=== PATIENT | male | born 1960 | race Caucasian/White ===

== ENCOUNTER 2017-03-05 11:41 | Inpatient (IN) | payer SELFPAY ==
[~2017-03-05] VITALS: Ht 170.2 cm; Wt 117.9 kg
[2017-03-05] VITALS (48 sets, daily range): BP systolic 46–154; BP diastolic 24–92
[2017-03-05] MEDS ORDERED: ETOMIDATE 2 MG/ML VIAL IV ONE (11:42)
[2017-03-05] MEDS ORDERED: SUCCINYLCHOLINE CHLORIDE 20 MG/ML VIAL IV ONE (11:42)
--- NOTE | 2017-03-05 11:42 | NUR ---
PT BRIANA RA 38 IN FULL CARDIAC ARREST. PER EMS, PT'S FRIEND CALLED 911 AFTER WITNESSING PT "SHAKING"AND WENT DOWN ONTO THE GROUND. UPON ER ARRIVAL, PT IN CARDIAC ARREST. PEA ON MONITOR. CPR IN PROGRESS. PT IMMEDIATELY INTUBATED WITH 7.5 ETT 25 @ THE LIP WITH + COLOR CHANGE AND BS BILATERALLY VENT SETTINGS FF: AC, RATE 16, TV 500, PEEP 5, & FI02 100%. SEE CODE SHEET
--- NOTE | 2017-03-05 11:54 | NUR ---
PAGED HAI GONZALEZ
--- NOTE | 2017-03-05 11:55 | NUR ---
+ ROSC. CPR TERMINATED.
[2017-03-05] MEDS ORDERED: EPINEPHRINE (1:10,000) SYRINGE 1 MG/10 ML DISP.SYRIN IV ONE ×2 (12:00)
[2017-03-05] MEDS ORDERED: IV NS 0.9% 1,000 ML BAG IV ONE (12:00)
[2017-03-05] MEDS ORDERED: CALCIUM CHLORIDE 1,000 MG/10 ML DISP.SYRIN IV ONE (12:00)
[2017-03-05] MEDS ORDERED: SODIUM BICARBONATE SYR 50 MEQ/50 ML DISP.SYRIN IV ONE (12:00)
--- NOTE | 2017-03-05 12:12 | NUR ---
URINE SAMPLE COLLECTED SENT TO LAB
--- NOTE | 2017-03-05 12:17 | NUR ---
CORE TEMP 108.1. COOLING MEASURES INITIATED. COOLING MEASURE BLANKET, ICE PACK, COOL LAVAGE.
[2017-03-05 12:28] LABS: BASOPHILS # (AUTO) 0.2 /CMM (0.0-0.2); BASOPHILS % (AUTO) 1.9 % (0.0-2.0); EOSINOPHILS % (AUTO) 0.5 % (0.0-6.0); HEMATOCRIT 45 % (39-51); INR 1.31 (0.87-1.13); LYMPHOCYTES # (AUTO) 5.5 /CMM (0.8-4.8); LYMPHOCYTES % (AUTO) 63.3 % (20.0-44.0); MEAN CORPUSCULAR HEMOGLOBIN 36 PG (26.0-33.0); MEAN CORPUSCULAR HGB CONC 33 g/dl (31.0-36.0); MEAN CORPUSCULAR VOLUME 110 fL (80-96); MONOCYTES # (AUTO) 0.5 /CMM (0.1-1.30); MONOCYTES % (AUTO) 6.1 % (2.0-12.0); NEUTROPHILS # (AUTO) 2.4 /CMM (1.8-8.9); NEUTROPHILS % (AUTO) 28.2 % (43.0-81.0); PLATELET COUNT (AUTO) 213 /CMM (150-450); PROTHROMBIN TIME 13.8 SECS (9.5-12.7); RDW COEFFICIENT OF VARIATION 20.3 (11.5-15.0); RED BLOOD CELL COUNT(AUTO) 4.12 MIL/uL (4.5-6.0); WHITE BLOOD COUNT (AUTO) 8.6 K/uL (4.3-11.0)
[2017-03-05] MEDS ORDERED: IV NS 0.9% 1,000 ML IV ONE ×2 (12:30)
[2017-03-05] MEDS ORDERED: ACETAMINOPHEN 325 MG TABLET PO PRN (12:30)
[2017-03-05] MEDS ORDERED: ONDANSETRON HCL/PF 4 MG/2 ML VIAL IVP PRN (12:30)
[2017-03-05 12:31] LABS: APPEARANCE,URINE Cloudy (CLEAR); BILIRUBIN,URINE LARGE (NEGATIVE); BLOOD, URINE Moderate Ery/uL (NEGATIVE); COLOR,URINE Dark (YELLOW); KETONES,URINE 15 (NEGATIVE); LEUKOCYTE ESTERASE ,URINE Negative (NEGATIVE); NITRITE, URINE Negative (NEGATIVE); PROTEIN,URINE >=300 mg/dl (NEGATIVE); UGLUCOSE Negative (NEGATIVE); UROBILINOGEN,URINE >=8.0 EU/dL (0.2)
[2017-03-05 12:32] LABS: TROPONIN I 0.031 ng/mL (0.00-0.056)
[2017-03-05 12:37] LABS: ALANINE AMINOTRANSFERASE 188 U/L (12-78); ALKALINE PHOSPHATASE 123 U/L (46-116); ASPARTATE AMINOTRANSFERASE 743 U/L (15-37); BILIRUBIN,DIRECT 1.3 mg/dL (0.0-0.2); BILIRUBIN,TOTAL 2.1 mg/dL (0.2-1.0); CALCIUM, SERUM 8.7 mg/dL (8.5-10.1); CARBON DIOXIDE 25 mmol/L (21-32); CHLORIDE 85 mmol/L (98-107); CREATININE 3.5 mg/dL (0.6-1.3); GLUCOSE 181 mg/dL (74-106); SODIUM SERUM 131 mmol/L (136-145); TOTAL PROTEIN, SERUM 6.9 g/dL (6.4-8.2); UREA NITROGEN, BLOOD 33 mg/dL (7-18)
[2017-03-05 12:39] LABS: POTASSIUM 2.6 mmol/L (3.5-5.1)
[2017-03-05 12:40] LABS: BACTERIA,URINE Few /HPF (None Seen); RBC,URINE 21-50 /HPF (0-2); SQUAMOUS EPITHELIAL CELL,UR Few /HPF (None Seen); WBC,URINE 0-2 /HPF (0-3)
[2017-03-05] MEDS ORDERED: FEE PK DOSING 1 MIN EA MC ONE (13:07)
[2017-03-05 13:16] LABS: CREATINE KINASE MB 0.5 ng/mL (0-3.6)
[2017-03-05] MEDS ORDERED: PIPERACILLIN /TAZOBACTAM 2.25 G in IV D5W 50 ML IV SCH (13:30)
[2017-03-05] MEDS: POTASSIUM CL. PREMIX PERIPHER. 50 ML IV SCH ×4 (13:49→16:25)
[2017-03-05] MEDS: PANTOPRAZOLE 40 MG VIAL IV SCH (13:49)
[2017-03-05] MEDS: IV NS 0.9% 1,000 ML IV PRN ×2 (13:50→15:36)
[2017-03-05] MEDS: ENOXAPARIN SODIUM 30 MG/0.3 ML DISP.SYRIN SQ SCH (13:50)
[2017-03-05] MEDS ORDERED: VANCOMYCIN 1.25 GM in IV D5W 500 ML IV ONE (14:00)
[2017-03-05 14:21] LABS: ABG BASE EXCESS -6.4 mmol/L; ABG OXYGEN SATURATION 98.3 % (92.0-98.5); ABG PCO2 62.6 mmHg (35.0-45.0); ABG PH 7.182 (7.350-7.450); ABG PO2 168.2 mmHg (75.0-100.0); AaDO2 482.2 mmHg; COHb 1.7 % (0.5-1.5); MetHb 1.1 % (0.0-1.5); O2Hb 95.5 % (94.0-97.0); PEEP,BG 5 cm H2O; SITE, ABG Right Radial; VENT MODE, BG AC 16 500 100% +5; VT, ABG 500 mL
[2017-03-05] MEDS ORDERED: NOREPINEPHRINE 8 MG in IV D5W 500 ML IV PRN (14:30)
--- NOTE | 2017-03-05 15:00 | NUR ---
CULINARY INTERNSHIP RECEIVED PATIENT UNRESPONSIVE, NO PUPILLARY REACTION WITH MULTIPLE IV ACCESS ON MECHANICAL VENTILATORY SUPPORT VERY DISHEVELED NO GAG REFLEX NOTED ALL EXTREMITIES WARM TO TOUCH, WEAK PULSES NOTED ELEVATED TEMPERATURE NOTED, PLACED ON A COOLING BLANKET AND ICE PACK ALL OVER HIS BODY MOTTLING OF THE SKIN NOTED TACHYCARDIA NOTED MD ORDERED TO GIVE 3RD BOLUS OF NS 1 LITER (+) BM NOTED
[2017-03-05] MEDS: NOREPINEPHRINE 16 MG in IV D5W 500 ML IV PRN ×2 (15:07→20:47)
--- NOTE | 2017-03-05 15:15 | NUR ---
FOOD OPERATIONS MANAGER DR. CALDERON SAW THE PATIENT WITH NEW ORDERS MADE AND CARRIED OUT MONITORED CLOSELY
--- NOTE | 2017-03-05 15:19 | NUR ---
RT NOTE PT ETT PULLED OUT TO 23 CM AT LIP PER MD REQUEST. CUFF INFLATED. NO DISTRESS NOTED. WILL CONTINUE TO MONITOR. Addendum: 03/05/17 at 1522 by TIKI BERMUDEZ RT Amended: Links added.
--- NOTE | 2017-03-05 15:22 | NUR ---
#3 D/W DR CALDERON REGARDING LOW BP 56/38 WITH ONLY ONE VENOUS CATHETER IN LT WRIST WHICH WE ARE USING FOR LEVOPHED. PICC PLACEMENT TEAM WAS CALLED EARLIER BY NURSING SUP.
[2017-03-05 15:57] LABS: ABG BASE EXCESS -6.7 mmol/L; ABG PH 7.264 (7.350-7.450); ABG PO2 92.2 mmHg (75.0-100.0); COHb 1.6 % (0.5-1.5); MetHb 0.9 % (0.0-1.5); O2Hb 93.6 % (94.0-97.0); PEEP,BG 0 cm H2O; SITE, ABG Right Radial; VENT MODE, BG AC 20 650 60% +0; VT, ABG 650 mL
--- NOTE | 2017-03-05 16:02 | NUR ---
ABG WITH PH 7.26 PCO2 46 PO2 [address] ANTONIO-NO CHANGE FOR NOW
--- NOTE | 2017-03-05 18:19 | NUR ---
D/W DR CALDERON THAT PT IS ANURIC, PT IS OOZING BLOOD FROM MOUTH, ALL VENIPUNCTURE SITES AND FROM BLOODY BM, AND THAT BP IS LOW IN SPITE OF HIGH DOSE LEVOPHED-SEE ORDERS FOR NEOSYN
--- NOTE | 2017-03-05 19:02 | NUR ---
SODA JERKER BLOODY SECRETION COMING OUT FROM THE MOUTH NOTED COLD TOUCH, BLANKET IS PLACED OVER HIM NS IV CHANGED TO 200 ML/HR LEVOPHED ON MAX AWAITING NEOSYNEPHERINE, ALREADY CALLED PHARMACY FOR THE MEDICATION STILL BLOOD PRESSURE IS FLUCTUATING POTASSIUM IS LOW, POTASSIUM 4 (40 MEQ) BAGS GIVEN THRU IV EARLIER ENDORSED TO NOD
--- NOTE | 2017-03-05 19:58 | NUR ---
AUTO MACHINIST DF @PT STARTED ON NEOSYNEPHRINE@100MCG BP OF 69/38.LEVOPHED@40MCG/MIN IV.0.9 NS @200ML/HR. @1930 INCREASED TO 150MCG/MIN @1999 INCREASED TO 200MCG/MIN PT FOUND DOWN PRIOR TO ADMISSION WITH WITNESSED FULL ARREST BY EMS STAFF.PT NOW IN ICU UNRESPONSIVE PT WITH HYPOXIC ISCHEMIC INJURY ON CT. PT NOT FOLLOWING COMMANDS,UNRESPONSIVE,NO GAG REFLEX PUPILS PUPILS SLUGGISH TO LIGHT@2MM.FLACCID BUE/BLE.PT INTUBATED TOLERATING VENT SETTINGS FIO2 OF 60%. NSR RATE OF 100-110BPM.PRESSOR SUPPORT NOTED.PT WITH TEMP OF 102 COOLING MEASURES PROVIDED.
[2017-03-05] MEDS: PIPERACILLIN /TAZOBACTAM 2.25 G in IV D5W 50 ML IV SCH (20:33)
--- NOTE | 2017-03-05 20:48 | NUR ---
RADIATION / CHEMISTRY TECHNICIAN DF NEOSYNEPHRINE INCREASED TO 250MCG/MIN BP OF 81/55
--- NOTE | 2017-03-05 21:29 | NUR ---
PT RECEIVED ORALLY INTUBATED ON VENT 7.5 ETT SECURED AT 22CM AT THE LIP. PT TOLERATING VENT SETTINGS. SX'D FOR LARGE AMT OF THIN TINGED SECRETIONS. VENT ALRMS SET AND AUDIBLE. AMBU BAG AT BEDSIDE. ETT CUFF BIOMASS FACILITATOR. VENT PLUGGED INTO RED OUTLET. WILL CONTINUE TO MONITOR. Addendum: 03/05/17 at 2131 by JASKARAN RICHARDS RT Amended: Links added.
--- NOTE | 2017-03-05 22:55 | NUR ---
CONSULTANT INTERN DF PT WITH HYPOTENSION SBP OF 65-81.PT ON MAX DOSE OF NEOSYNEPHRINE@300MCG LEVOPHED@40MCG.ORDERS RECEIVED FOR VASOPRESSIN AND [address] MARIN UPDATED
[2017-03-05] MEDS ORDERED: VASOPRESSIN INJ 20 UNIT/ML VIAL ONE (23:00)
[2017-03-05] MEDS ORDERED: FUROSEMIDE 100 MG/10 ML VIAL ONE (23:22)
[2017-03-05] MEDS ORDERED: PHENYLEPHRINE 10 MG/ML VIAL ONE (23:47)
--- NOTE | 2017-03-05 23:52 | NUR ---
EXTENSION CLERK DF PT STARTED ON VASOPRESSIN @ 0.02UNITS/HR BP OF 80/51. PER DR MARIN PT PREPARED FOR EDENILSON INSERTION.
[2017-03-06] VITALS (77 sets, daily range): BP systolic 40–123; BP diastolic 24–96
[2017-03-06] MEDS ORDERED: IV NS 0.9% 1,000 ML BAG IV ONE
[2017-03-06] MEDS ORDERED: NOREPINEPHRINE 4 MG/4 ML AMPUL IV ONE (00:14)
[2017-03-06] MEDS ORDERED: VASOPRESSIN INJ 50 UNIT in IV D5W 497.5 ML IV PRN (00:30)
[2017-03-06] MEDS: PHENYLEPHRINE 80 MG in IV D5W 250 ML IV PRN ×5 (00:31→17:53)
[2017-03-06] MEDS ORDERED: EPINEPHRINE (1:10,000) SYRINGE 1 MG/10 ML DISP.SYRIN IVP ONE ×4 (01:00→20:27)
[2017-03-06] MEDS ORDERED: SODIUM BICARBONATE SYR 50 MEQ/50 ML DISP.SYRIN IV ONE ×5 (01:00→20:27)
[2017-03-06] MEDS ORDERED: EPINEPHRINE (1:1000) 1 MG/ML AMPUL ONE ×2 (01:15→03:34)
[2017-03-06] MEDS: EPINEPHRINE (1:1000) 2 MG in IV D5W 250 ML IV PRN ×6 (01:31→17:53)
--- NOTE | 2017-03-06 01:36 | NUR ---
GRAPE PICKER DF @0105 PT WITH CODE BLUE PT WITH PEA/AYSTOLE ON MONITOR. PT PREVIOUSLY NOTED CRITICAL CONDITION FULL ARREST PRIOR TO ADMIT.PT ON MULTIPLE PRESSOR SUPPORT VIC/LEVO/VASO. CODE BLUE WITNESSED BY RT CARLOS CPR/ACLS CODE LEADER DR MARIN AT BEDSIDE. PT ADMIN 1 AMP HCO3 AND 2 AMPS EPINEPHRINE ROSC AT 0110. ABG/EPI GTT/LABS ORDERED PT DIFFICULT STICK AWAITING LAB VALUES. EPI GTT STARTED AT 10MCG/MIN.LABS WERE DRAWN JUST PRIOR TO CODE BLUE CONTAMINATION SUSPECTED.LAB ATTEMPTING PERIPHERAL DRAW.
[2017-03-06 01:53] LABS: ABG BASE EXCESS -22.8 mmol/L; ABG OXYGEN SATURATION 98.8 % (92.0-98.5); ABG PCO2 40.5 mmHg (35.0-45.0); ABG PH 6.955 (7.350-7.450); ABG PO2 233.7 mmHg (75.0-100.0); AaDO2 438.8 mmHg; COHb 0.5 % (0.5-1.5); MetHb 0.8 % (0.0-1.5); O2Hb 97.5 % (94.0-97.0); SITE, ABG Right Brachial; VT, ABG 650 mL
--- NOTE | 2017-03-06 01:54 | NUR ---
ABG DONE RN NOTIFIED WITH THE RESULT
--- NOTE | 2017-03-06 02:19 | NUR ---
HONEYCOMB DECAPPER DF PT ABG RESULTED PH 6.95 CO2 40 O2 [address] MARIN AT BEDSIDE AWARE OF RESULTS. SODIUM ACETATE 3AMPS IN D5W@125ML/HR ORDERED.AWAITING DELIVERY FROM [facility]. Addendum: 03/06/17 at 0232 by YVONNE DIAS RN HONEYCOMB DECAPPER DF SODIUM ACETATE UNAVAILABLE PER PHARMACY AND WAITER/WAITRESS CABIN CLASS.DR MARIN AWARE MEDICATION UNAVAILABLE.
--- NOTE | 2017-03-06 02:21 | NUR ---
SALES AND SERVICE TECHNICIAN DF LAB STAFF UNABLE TO OBTAIN PERIPHERAL DRAW MULTIPLE ATTEMPTS ATTEMPTED. DRAW FROM PICC LINE PROVIDED.
[2017-03-06] MEDS ORDERED: IV D5W 1,000 ML IV PRN (02:30)
[2017-03-06 02:41] LABS: BASOPHILS # (AUTO) 0.1 /CMM (0.0-0.2); BASOPHILS % (AUTO) 0.4 % (0.0-2.0); EOSINOPHILS # (AUTO) 0.1 /CMM (0.0-0.7); EOSINOPHILS % (AUTO) 0.3 % (0.0-6.0); HEMATOCRIT 42 % (39-51); HEMOGLOBIN 13.9 g/dL (13.5-17.5); LYMPHOCYTES # (AUTO) 7.9 /CMM (0.8-4.8); MEAN CORPUSCULAR HEMOGLOBIN 37 PG (26.0-33.0); MEAN CORPUSCULAR HGB CONC 33 g/dl (31.0-36.0); MEAN CORPUSCULAR VOLUME 112 fL (80-96); MONOCYTES % (AUTO) 10.4 % (2.0-12.0); NEUTROPHILS # (AUTO) 17.3 /CMM (1.8-8.9); NEUTROPHILS % (AUTO) 60.9 % (43.0-81.0); PLATELET COUNT (AUTO) 84 /CMM (150-450); RDW COEFFICIENT OF VARIATION 21.4 (11.5-15.0); RED BLOOD CELL COUNT(AUTO) 3.78 MIL/uL (4.5-6.0); WHITE BLOOD COUNT (AUTO) 28.4 K/uL (4.3-11.0)
--- NOTE | 2017-03-06 03:10 | NUR ---
CLINICAL DATA MANAGEMENT MANAGER DF STILL WAITING FOR LABS TO BE RESULTED DRAWN ABOUT 30-45MIN AGO.CONTACTED LAB WAITING FOR CHEMISTRY RESULTS. Addendum: 03/06/17 at 0332 by YVONNE DIAS RN [facility] MORAL[facility] ICU CA RESULTED OF 6.0 AWAITING FOR FURTHER VALUES STILL PROCESSING PER LAB
[2017-03-06] MEDS: NOREPINEPHRINE 16 MG in IV D5W 500 ML IV PRN ×3 (03:18→17:05)
[2017-03-06] MEDS ORDERED: PHENYLEPHRINE 10 MG/ML VIAL ONE (03:18)
[2017-03-06 03:25] LABS: ALBUMIN 2.1 g/dL (3.4-5.0); BILIRUBIN,TOTAL 3.1 mg/dL (0.2-1.0); CREATININE 5.4 mg/dL (0.6-1.3); MAGNESIUM 1.8 mg/dL (1.8-2.4); POTASSIUM 3.6 mmol/L (3.5-5.1); TOTAL PROTEIN, SERUM 5.2 g/dL (6.4-8.2)
[2017-03-06 03:31] LABS: BAND % (MANUAL) 5 % (0.0-5.0); LYMPHOCYTES % (MANUAL) 26 % (16-48); METAMYELOCYTES % 2 % (0-0); MONOCYTES % (MANUAL) 11 % (0-11.0); NEUTROPHILS % (MANUAL) 56 (42-76)
--- NOTE | 2017-03-06 03:33 | NUR ---
COMPUTER LANGUAGE CODER DF PT UNSTABLE I AM UNABLE TO PROVIDE BATH AT THIS TIME. PT UNSTABLE ON MULTIPLE PRESSORS AND EPI GTT WITH DESATURATION.PT HEART RATE WILL DECREASE AND BP DECREASE WHEN PT IS MOVED. Addendum: 03/06/17 at 0405 by YVONNE DIAS RN PARTIAL BATH PROVIDED PT WITH ACTIVE GIB HGB STABLE AT 13.PLATELETS OF 86 DR TOMAS FIELDS.
--- NOTE | 2017-03-06 03:43 | NUR ---
OPERATOR SUPPLY DF KATH MARIN ADVISED OF CRITICAL/ABM LABS CALCIUM OF 6.0/MG OF 1.8/POTASSIUM OF 3.6/AMONIA OF 83 DR MARIN AWARE OF ALL ABM VALUES. Addendum: 03/06/17 at [address]NE DIAS RN [address] AGUILA REGARDING ADDITIONAL CRITICAL VALUES PHOSPHOROUS OF 22.[address] Ashvin MARIN AWARE OF RESULTS NO FURTHER ORDERS RECEIVED Addendum: 03/06/17 at 0620 by YVONNE DIAS RN lactic acid of 12.[address] marin aware of critical lab values no additional orders received at this time.
[2017-03-06 03:46] LABS: THYROID STIMULATING HORMONE 6.592 uIU/mL (0.358-3.74)
[2017-03-06 04:13] LABS: CREATINE KINASE MB 590.3 ng/mL (0-3.6)
[2017-03-06] MEDS: PIPERACILLIN /TAZOBACTAM 2.25 G in IV D5W 50 ML IV SCH ×3 (04:33→20:45)
[2017-03-06 05:07] LABS: BASOPHILS # (AUTO) 0.1 /CMM (0.0-0.2); BASOPHILS % (AUTO) 0.2 % (0.0-2.0); EOSINOPHILS # (AUTO) 0.1 /CMM (0.0-0.7); EOSINOPHILS % (AUTO) 0.3 % (0.0-6.0); HEMATOCRIT 41 % (39-51); HEMOGLOBIN 13.8 g/dL (13.5-17.5); LYMPHOCYTES # (AUTO) 7.1 /CMM (0.8-4.8); LYMPHOCYTES % (AUTO) 25.7 % (20.0-44.0); MEAN CORPUSCULAR HEMOGLOBIN 37 PG (26.0-33.0); MEAN CORPUSCULAR HGB CONC 33 g/dl (31.0-36.0); MEAN CORPUSCULAR VOLUME 112 fL (80-96); MONOCYTES # (AUTO) 2.2 /CMM (0.1-1.30); NEUTROPHILS # (AUTO) 18.2 /CMM (1.8-8.9); NEUTROPHILS % (AUTO) 65.8 % (43.0-81.0); PLATELET COUNT (AUTO) 66 /CMM (150-450); RDW COEFFICIENT OF VARIATION 22.2 (11.5-15.0); RED BLOOD CELL COUNT(AUTO) 3.71 MIL/uL (4.5-6.0); WHITE BLOOD COUNT (AUTO) 27.6 K/uL (4.3-11.0)
[2017-03-06 06:20] LABS: TROPONIN I 22.757 ng/mL (0.00-0.056)
--- NOTE | 2017-03-06 07:10 | NUR ---
PT RECEIVED ORALLY INTUBATED ON PB840 VENT W/ SETTINGS PER MD, VENT IN RED OUTLET, AMBUBAG AT BEDSIDE. ETT 7.5 @ 23 CM SECURE, PATENT, W/ ANCHOFAST. BREATH SOUNDS EQUAL DIMINISHED. PT SX'ED AND LAVAGED PRN TO MODERATE AMOUNTS OF THICK BLOOD TINGED SECRETIONS. ABGS DONE AND REPORTED TO DR. ANTONIO AT BEDSIDE. PLAN IS CONTINUE CARE W/ CURRENT MD ORDERS AND MONITOR FOR CHANGES. Addendum: 03/06/17 at 1104 by MARLEY RODRIGUEZ RT Amended: Links added.
[2017-03-06] MEDS ORDERED: Sodium Bicarbonate 100 MEQ in IV D5W 1,000 ML IV PRN (07:30)
--- NOTE | 2017-03-06 07:30 | NUR ---
Received patient intubated, on mech vent. hypotensive on 4 pressors all max dose. acidotic with the last abg done. No response to pain, no gag, no cough reflex. No family available, patient was found on the street yesterday according to report.
[2017-03-06 08:10] LABS: ABG BASE EXCESS -24.1 mmol/L; ABG OXYGEN SATURATION 98.3 % (92.0-98.5); ABG PCO2 37.4 mmHg (35.0-45.0); ABG PH 6.933 (7.350-7.450); ABG PO2 155.4 mmHg (75.0-100.0); AaDO2 375.7 mmHg; COHb 0.5 % (0.5-1.5); MetHb 0.7 % (0.0-1.5); O2Hb 97.1 % (94.0-97.0); PEEP,BG 0 cm H2O; SITE, ABG Right Brachial; VENT MODE, BG AC 20 600; VT, ABG 650 mL
--- NOTE | 2017-03-06 08:10 | NUR ---
MULTIPLE D/W DR CALDERON AND PHARMACIST EDUARDO REGARDING PH 6.9 AND ORDERS FOR BICARB GTT AND SODIUM ACETATE GTT. ULTIMATE DECISION BETWEEN PHARMACIST AND DR CALDERON TO D/C ORDERS FOR BICARB AND SODIUM ACETATE
[2017-03-06] MEDS: PANTOPRAZOLE 40 MG VIAL IV SCH (08:29)
[2017-03-06] MEDS: IV NS 0.9% 1,000 ML IV PRN ×2 (08:29→13:55)
[2017-03-06] MEDS ORDERED: CALCIUM CHLORIDE 1,000 MG/10 ML DISP.SYRIN IV ONE (10:41)
[2017-03-06 10:44] LABS: ABG BASE EXCESS -26.2 mmol/L; ABG OXYGEN SATURATION 97.7 % (92.0-98.5); ABG PO2 132.1 mmHg (75.0-100.0); AaDO2 270.4 mmHg; COHb 0.4 % (0.5-1.5); MetHb 0.6 % (0.0-1.5); O2Hb 96.7 % (94.0-97.0); PEEP,BG 0 cm H2O; SITE, ABG Right Brachial; VENT MODE, BG AC 28 700; VT, ABG 700 mL
--- NOTE | 2017-03-06 10:48 | NUR ---
D/W DR PACO BERRIOS AFTER VENT CHANGES WITH PH 6.9-FOR TWO AMPS BICARB IVP
--- NOTE | 2017-03-06 11:34 | NUR ---
Still waiting for bicarb 2 amp IV push from pharmacy. Used 1 amp stocked on the transport bin.
--- NOTE | 2017-03-06 12:00 | NUR ---
Unable to read blood pressure through automatic cuff, attempted multiple cycle. Femoral pulse checked and present. max on multiple pressors already, MD aware.
[2017-03-06] MEDS ORDERED: VANCOMYCIN 1 GM in IV D5W 250 ML IV SCH (14:00)
--- NOTE | 2017-03-06 19:23 | NUR ---
THIRD HELPER DF RECEIVED PT TO ROOM#260 PT CRITICAL CONDITION PT FULL ARREST PRIOR TO ADMISSION S/P CODE BLUE X2 IN THE LAST 24 HOURS. PT UNRESPONSIVE,NO GAG REFLEX,PUPILS FIXED AND DILATED @4MM FLACCID BUE/BLE INTUBATED PT PREVIOUS ABG ACIDOTIC RECEIVED BICARB DURING DAYSHIFT.PT ON 60% FIO2 WITH O2 SAT OF 70%.PT NSR ON MONITOR PT ON PRESSOR SUPPORT LEVOPHED,NEOSYNEPHRINE,VASOPRESSIN, EPINEPHRINE INFUSING AT MAX DOSE.BP OF 79/38.PT WITH POOR PROGNOSIS PT HOMELESS NO FAMILY INFO AVAIL SENIOR INVESTMENT ANALYST CONSULT PENDING. Addendum: 03/06/17 at 1953 by YVONNE DIAS RN PT BRADYCARDIC W/PULSE AT 42BPM BP OF 51/30 CRASH CART PLACED IN ROOM. Addendum: 03/06/17 at 2043 by YVONNE DIAS RN @2021 PT BECAME ASYSTOLE ON MONITOR PULSELESS UNABLE TO OBTAIN BP. DEO MORENO CALLED ACLS PER PROTOCOLS.PT RECEIVED BICARBX1 EPINEPHRINE X2 CODE BLUE UNSUCCESSFUL PRONOUNCED @ [address] COSME. [facility] CALLED CASE #[id number] PREVIOUSLY NOTED PT HOMELESS NO FAMILY INFORMATION AVAIL.
--- NOTE | 2017-03-06 20:22 | NUR ---
RT CODE BLUE CALLED OVERHEAD. RT ARRIVED AT BEDSIDE WITH CPR ALREADY IN PROGRESS BY NURSING STAFF. CPR CONTINUED UNTIL ER DR FITZGERALD ARRIVED.
[2017-03-06] MEDS: ENOXAPARIN SODIUM 30 MG/0.3 ML DISP.SYRIN SQ SCH (20:45)
--- NOTE | 2017-03-06 21:59 | NUR ---
TIN STACKER DF POST MORTEM CARE DONE PER CORONERS CASE PROTOCOLS.CORONERS CASE #[id number] PT BROUGHT TO [facility] STERILIZER EXPECTED FELT HOOKER DATE 03/07/17.DENIED FOR [facility] DONATION
[2017-03-07] MEDS ORDERED: VANCOMYCIN 1 GM in IV D5W 250 ML IV SCH (14:00)
== END 2017-03-06 20:28 | disposition expired | DRG 871 ==
LOC: ER 11:41 → ICU 12:51
PROVIDERS: ADMIT Family Medicine; ATTEND Family Medicine
PROC: 0YH933Z Insertion of Infusion Device into Right Lower Extremity, Percutaneous Approach (ICD-10-PCS; principal; 2017-03-05)
PROC: 5A12012 Performance of Cardiac Output, Single, Manual (ICD-10-PCS; principal; 2017-03-05)
PROC: B548ZZA Ultrasonography of Superior Vena Cava, Guidance (ICD-10-PCS; principal; 2017-03-05)
PROC: 5A1945Z Respiratory Ventilation, 24-96 Consecutive Hours (ICD-10-PCS; principal; 2017-03-05)
PROC: 02HV33Z Insertion of Infusion Device into Superior Vena Cava, Percutaneous Approach (ICD-10-PCS; principal; 2017-03-05)
PROC: 0BH18EZ Insertion of Endotracheal Airway into Trachea, Via Natural or Artificial Opening Endoscopic (ICD-10-PCS; principal; 2017-03-05)
PROC: 5A12012 Performance of Cardiac Output, Single, Manual (ICD-10-PCS; 2017-03-06)
DX: A41.9 Sepsis, unspecified organism (principal); N17.0 Acute kidney failure with tubular necrosis; I21.4 Non-ST elevation (NSTEMI) myocardial infarction; I46.9 Cardiac arrest, cause unspecified; J96.01 Acute respiratory failure with hypoxia; K72.00 Acute and subacute hepatic failure without coma; E87.2 Acidosis; D69.6 Thrombocytopenia, unspecified; R65.21 Severe sepsis with septic shock; G93.1 Anoxic brain damage, not elsewhere classified; M62.82 Rhabdomyolysis; Z68.41 Body mass index [BMI] 40.0-44.9, adult; T67.0XXA Heatstroke and sunstroke, initial encounter; E66.9 Obesity, unspecified; E87.6 Hypokalemia; Z59.0 Homelessness; X58.XXXA Exposure to other specified factors, initial encounter; Y93.9 Activity, unspecified; Y92.9 Unspecified place or not applicable
CPT/HCPCS: 31720; 36415; 36600; 70450-TC; 71010-TC; 80048-TC; 80053-TC; 80076-TC; 81000-TC; 82140-TC; 82550-TC; 82553-TC; 82803-TC; 83605-TC; 83735-TC; 84100-TC; 84443-TC; 84484-TC; 85025-TC; 85730-TC; 86850-TC; 87040-TC; 87081-TC; 87086-TC; 92950-TC; 94003-TC; 94762-TC; A4606; A6403; C1751; C9113; J0171; J0330; J1650; J1940; J2370; J2543; J3370; J3480; J3490; J7030; J7040; J7050; J7060; J7070; Z7610